=== PATIENT | female | born 1945 | race Two or more races ===

== ENCOUNTER 2017-11-10 17:16 | Emergency (ER) | payer OTHER ==
[~2017-11-10] VITALS: Ht 157.5 cm; Wt 61.7 kg
[~2017-11-10 17:16] MED LIST: CALTRATE 600600 MG PO; CATAFLAM50 MG PO; LEVSIN/SL0.125 MG SL; LIBRAX CAPSULE1 CA1; NEURONTIN600 MG; NEXIUM20 MG/PACK PO; NITROSTAT0.4 MG SL; ORPH100T PO; PEPCID20 MG PO; REGLAN5 MG/5 ML PO; SYNTHROID150 MCG PO; SYNTHROID50 MCG; TRICOR48 MG PO; ZOCOR40 MG PO
[2017-11-11] MEDS ORDERED: METRONIDAZOLE500 MG PO (07:34)
[2017-11-11] MEDS ORDERED: CIPRO500 MG PO (07:34)
[2017-11-11] MEDS ORDERED: PROTONIX40 MG PO (07:34)
== END 2017-11-11 07:50 | disposition home or self-care (01) ==
LOC: ER 17:16
DX: K57.92 Diverticulitis of intestine, part unspecified, without perforation or abscess without bleeding (principal); R10.32 Left lower quadrant pain

== ENCOUNTER → 2018-03-11 | Emergency (ER) | payer OTHER ==
[~2018-03-11] VITALS: Ht 157.5 cm; Wt 61.7 kg
[~2018-03-11] MED LIST changes: +CIPRO500 MG PO; +METRONIDAZOLE500 MG PO; +PROTONIX40 MG PO
== END | disposition home or self-care (01) ==
LOC: ER 07:27
DX: K29.00 Acute gastritis without bleeding (principal); J02.9 Acute pharyngitis, unspecified

== ENCOUNTER 2018-07-02 11:18 | Emergency (ER) | payer OTHER ==
[~2018-07-02] VITALS: Ht 157.5 cm; Wt 61.7 kg
[2018-07-02] MEDS ORDERED: BACLOFEN10 MG (12:39)
[2018-07-02] MEDS ORDERED: URETRON D-S TAB1 TAB (12:39)
[2018-07-02] MEDS ORDERED: CIPRO500 MG (12:40)
[2018-07-02] MEDS ORDERED: DICLOFENAC POTA50 MG (12:40)
== END 2018-07-02 16:14 | disposition home or self-care (01) ==
LOC: ER 11:18
DX: B34.9 Viral infection, unspecified (principal)

== ENCOUNTER 2018-09-02 06:18 | Emergency (ER) | payer OTHER ==
[~2018-09-02] VITALS: Ht 157.5 cm; Wt 63.5 kg
[~2018-09-02 06:18] MED LIST changes: +BACLOFEN10 MG; +CIPRO500 MG; +DICLOFENAC POTA50 MG; +URETRON D-S TAB1 TAB
[2018-09-02] MEDS ORDERED: SINGULAIR10 MG (06:30)
[2018-09-02] MEDS ORDERED: PEPCID40 MG (06:33)
[2018-09-02] MEDS ORDERED: ALLERCLEAR10 M1 (06:34)
[2018-09-02] MEDS ORDERED: LISINOPRIL2.5 MG (06:34)
[2018-09-02] MEDS ORDERED: IMODIUM A-D2 MG (06:34)
[2018-09-02] MEDS ORDERED: LEVOXYL50 MCG (06:35)
[2018-09-02] MEDS ORDERED: DICY20TA (06:35)
== END 2018-09-02 15:36 | disposition home or self-care (01) ==
LOC: ER 06:18
DX: K58.8 Other irritable bowel syndrome (principal); K57.30 Diverticulosis of large intestine without perforation or abscess without bleeding

== ENCOUNTER 2019-02-23 07:15 | Emergency (ER) | payer OTHER ==
[~2019-02-23] VITALS: Ht 157.5 cm; Wt 69.9 kg
[~2019-02-23 07:15] MED LIST changes: +ALLERCLEAR10 M1; +DICY20TA; +IMODIUM A-D2 MG; +LEVOXYL50 MCG; +LISINOPRIL2.5 MG; +PEPCID40 MG; +RESTORIL30 M1; +SINGULAIR10 MG
== END 2019-02-23 12:01 | disposition home or self-care (01) ==
LOC: ER 07:15
DX: B34.9 Viral infection, unspecified (principal); M25.50 Pain in unspecified joint

== ENCOUNTER 2019-05-16 09:54 | Emergency (ER) | payer OTHER ==
[~2019-05-16] VITALS: Ht 160 cm; Wt 63.5 kg
[2019-05-16] MEDS ORDERED: ZANAFLEX2 M1 PO (10:09)
[2019-05-16] MEDS ORDERED: TORADOL60 MG IM (10:09)
== END 2019-05-16 11:35 | disposition home or self-care (01) ==
LOC: ER 09:54
DX: M75.82 Other shoulder lesions, left shoulder (principal)